=== PATIENT | female | born 1960 | race Caucasian/White ===

== ENCOUNTER → 2017-08-02 | Outpatient (CLI) | payer BC | LOC: OD 15:08 | DX: M25.551 Pain in right hip (principal) | CPT/HCPCS: 36415; 82495; 83018 ==

== ENCOUNTER → 2017-09-26 | Outpatient (CLI) | payer BC | LOC: OD 13:46 | DX: M25.551 Pain in right hip (principal) | CPT/HCPCS: 36415; 85652; 86140 ==

== ENCOUNTER → 2018-09-17 | Outpatient (CLI) | payer BC ==
[2018-09-20 07:28] LABS: CHROMIUM PLASMA 2.7 ug/L (0.1-2.1); COBALT PLASMA 5.5 ug/L (0.0-0.9)
== END ==
LOC: OD 13:56
DX: Z96.641 Presence of right artificial hip joint (principal)
CPT/HCPCS: 36415; 82495; 83018; 85652; 86140

== ENCOUNTER → 2019-02-17 | Outpatient (CLI) | payer BC ==
--- NOTE | 2019-02-17 16:42 | XCELERA REPORT ---
[address] [place] [facility] [address] Lower Extremity Venous Evaluation Procedure: Color flow and duplex imaging of the veins of the left lower extremity as well as the right Common Femoral vein. Right Sided Venous Evaluation The right common femoral vein is fully compressible. Spontaneous and phasic flow is present in the right common femoral vein. Left Sided Venous Evaluation Normal vessel filling wall to wall, compression and augmentation as well as Colour flow down to the infrageniculate veins. Interpretation Summary No duplex evidence of DVT or obstruction in the left lower extremity nor in the right Common Femoral vein. Name: WINTER NEVAREZSA Age: 58 yrs Gender: Female : 1960 Patient Status: Outpatient Patient Location: Study Date: 02/17/2019 04:16 PM Reason For Study: LLE PAIN AND SWELLING Ordering Physician: AMBROSIO HU Performed By: Yana Huang : AMBROSIO HU > Zachariah Nevarez
--- NOTE | 2019-02-18 20:12 | VASCULAR PRELIM REPORT ---
Provider Note Provider Note: Negative for DVT in right Femoral and left lower extremity.
== END ==
LOC: SP 15:42
PROVIDERS: ATTEND Physician Assistant
DX: M25.562 Pain in left knee (principal); R60.0 Localized edema; Z96.649 Presence of unspecified artificial hip joint
CPT/HCPCS: 93971